=== PATIENT | male | born 2005 | race Caucasian/White ===

== ENCOUNTER 2024-08-11 10:51 | Emergency (ER) | payer BC, SELFPAY ==
[2024-08-11 10:51] VITALS: BP 105/90; PULSE 91; RESP 14; TEMP 36.6; O2SAT 100; BMI 20.7
--- NOTE | 2024-08-11 10:56 | EDS_ITS ---
HPI History of Present Illness Chief Complaint: Allergic Reaction Informant: patient Onset/Context/Timing Onset: Yesterday Context: Gradual Onset Timing: Continuous Quality: Pruritic Location: Face, arms, abdomen Worsened by: Nothing Relieved by: Nothing Narrative Narrative: Patient presents with poison aleah that began yesterday. Patient states that has gotten progressively worse. Patient states it has caused some swelling of his eyelids. Patient states the rash is pruritic. Patient states it is mainly over the face, arms, and abdomen. Patient states nothing makes it better and nothing makes it worse. Patient denies any fevers or chills. Patient denies any visual changes. Patient just states that it is difficult to open his eyes due to the swelling. Patient denies any difficulty swallowing or difficulty breathing. PFSH PFSH Medical History no medical history no medical history Home Medications ?Medication ?Instructions ?Recorded ?Last Taken ?Type ketoconazole 2 % shampoo topical DAILY 08/11/24 Unknown History minocycline 100 mg capsule 100 mg PO QPM 08/11/24 Unknown History prednisone 20 mg tablet 60 mg (3 x 20 mg) PO DAILY #15 08/11/24 Unknown Rx TABLETS Allergy/AdvReac Type Severity Reaction Status Date / Time amoxicillin Allergy RASH Verified 08/11/24 11:08 Surgical History (Updated 08/11/24 @ 11:[address] Naeem Haider DO) Hx of eye surgery Surgical History no surgical history Social History Smoking Status: Never smoker ROS ROS ED Constitutional Constitutional ED: Denies chills or fever(s) Eyes Eyes: Denies blurry vision or change in vision ENT ENT ED: Denies rhinorrhea or sore throat Cardiovascular Cardiovascular: Denies chest pain or palpitations Respiratory/Chest Respiratory/Chest: Denies cough or dyspnea Gastrointestinal Gastrointestinal: Denies nausea or vomiting Genitourinary Genitourinary ED: Denies dysuria or hematuria Musculoskeletal Musculoskeletal: Denies back pain or neck pain Integumentary Reports rash; Denies abscess Neurologic Neurologic: Denies headache(s) or weakness Allergic/Immunologic Allergic/Immunologic ED: Denies mouth swelling or urticaria EXAM Physical Exam Const Vital Signs: 08/11/24 10:51 Temperature 98 F Temperature Source Temporal Pulse Rate 91 Respiratory Rate 14 Blood Pressure 105/90 H Blood Pressure Mean 95 Pulse Ox 100 Oxygen Delivery Method Room Air Positive well nourished and well developed General Appearance ED: well developed and NAD HEENT Reports moist mucous membranes HEENT Narrative: Oropharynx is clear. Airway is patent. There is no pharyngeal edema noted. Neck supple and no JVD Neuro oriented x3, CN's II-XII intact bilaterally and no sensory deficits noted Sensorium / Orientation: alert Motor Exam: strength 5/5 throughout Psych mental status grossly normal Skin Skin Narrative: Skin is warm and dry. There is a patchy erythematous rash over the face and bilateral upper extremities. There are areas of linear vesicles. There is some mild crusting and drainage. There are no pustules noted. There are no petechia noted. There is no involvement of the mucous membranes. There are 2 small erythematous lesions over the abdomen. There is no involvement of the palms or soles. MDM MDM MDM Narrative Medical decision making narrative: Patient was advised that this is Rhus dermatitis. Patient was given a dose of prednisone here. Patient was given a prescription for a short course of prednisone. Patient was instructed to continue using Benadryl as needed for any itching. Patient was instructed to keep the areas clean. Patient was instructed on good handwashing. Patient was instructed to follow-up with his primary care physician in 5 to 7 days. Patient understood and was agreeable with the plan. All questions were answered. Discharge Plan Triage Chief Complaint: Allergic Reaction ED Provider: Naeem Haider Dx/Rx/DC Orders Clinical Impression: Rhus dermatitis, Poison aleah dermatitis Instructions: ED Poison Aleah Rash Prescriptions: New prednisone 20 mg tablet 60 mg PO DAILY Qty: 15 0RF No Action ketoconazole 2 % shampoo topical DAILY minocycline 100 mg capsule 100 mg PO QPM Primary Care Provider: Nory Don Referrals: Nory Don MD [Primary Care Provider] - 5-7 Days Print Language: Trinidadian Disposition Disposition: Home, Self Care
[2024-08-11] MEDS: predniSONE 20 MG Tablet 60 MG PO (12:20)
== END 2024-08-11 12:28 | disposition home or self-care (01) ==
PROVIDERS: Emergency Provider Emergency Medicine; PCP Pediatrics; Visit Provider Emergency Medicine
DX: L23.7 Allergic contact dermatitis due to plants, except food (principal)
CPT/HCPCS: 99282

== ENCOUNTER → 2024-12-19 | Outpatient (CLI) | payer BC, SELFPAY ==
[2024-12-19 15:54] LABS: Hemoglobin A1c 4.8 % (3.8-5.6)
[2024-12-19 17:47] LABS: Anion Gap 8 (5-15); BUN 13 mg/dL (7-18); BUN/Creat Ratio 14.5 RATIO (10-20); Calcium,Total 9.6 mg/dL (8.5-10.1); Chloride 102 mmol/L (98-107); EST Glomerular Filtration Rate 115 mL/min (>60); Est Glom Filt Rate - Afr Amer 139 mL/min (>60); Glucose 79 mg/dL (74-106); Potassium 3.9 mmol/L (3.5-5.1); Sodium Level 136 mmol/L (136-145)
== END | disposition home or self-care (01) ==
LOC: MTLAB 13:51
PROVIDERS: PCP Pediatrics; Referring Provider Pediatrics; Visit Provider Pediatrics
DX: R81 Glycosuria (principal)
CPT/HCPCS: 36415; 80048; 83036